=== PATIENT | female | born 1980 | race Caucasian/White ===

== ENCOUNTER 2021-01-28 22:23 | Observation (INO) | payer OTHER, SELFPAY ==
[2021-01-28 22:33] VITALS: BP 125/65; PULSE 81; RESP 16; TEMP 36.7; O2SAT 100
--- NOTE | 2021-01-28 22:58 | W.ED.GENAD ---
Discharge Plan Disposition Patient Disposition: [facility] INPATIENT Condition: Stable Discharge Details Clinical Impression: Abdominal pain, RLQ, First trimester Primary Care Provider: Unknown,Unknown ED Provider: Darrin Coronel Home Meds and New Rx's Prescriptions: No Action No Known Home Meds RF: 0 Medical Decision Making 40-year-old female with no significant medical or surgical history presenting with right-sided abdominal pain in the setting of positive home test. She is tender to palpation in the right lower quadrant over McBurney's point. She does not have guarding or rebound. She does have scant amount of blood in the vagina with a closed os. Mild right adnexal tenderness but less so than in the right lower quadrant. IV established and laboratory studies ordered. IV fluids and IV Tylenol ordered. Laboratory studies significant for white count of 14.3. Hemoglobin is normal. Chemistries and LFTs normal. Beta quant positive and still being diluted. Unable to get radiology interventional physician to come in tonight to do pelvic ultrasound. Case discussed with OB, Dr. Astudillo. Will admit for observation overnight to MedSurg unit with plan for pelvic ultrasound in the morning. If IUP identified consider appendicitis and possible surgical consult. Plan and reason for admission discussed with patient who is in agreement. She is made n.p.o. Covid swab obtained. She is stable at this time in the ED. Lab Data Lab results reviewed: Yes I reviewed the patient's lab results. HPI General Mode of arrival: ambulatory. Date/Time Provider Initiated Documentation: 01/28/21 22:38. Limitations to Documentation: no limitations. Information obtained by: patient and RN notes reviewed. HPI Narrative: Patient presents to the ED with lower abdominal pain and cramping. Patient reports her last normal menstrual cycle was mid November. She took a test a couple weeks ago which she reports is positive. She also reports a previous miscarriage about 4 to 5 months ago. She has had some pain on and off in the lower pelvis. She has had pressure for the last couple of weeks. She has had occasional spotting but no actual bleeding. Today she felt good until this evening when she developed pain and cramping suprapubic and off to the right. She has nausea but no vomiting. She had diarrhea yesterday but not today. Feels like she needs to push and have a bowel movement but cannot and gets sharp pain on the right. She has no urinary symptoms. No fever. She is visiting from [facility]. Related Data Home Medications Medication Instructions Recorded Confirmed Unknown [No Known Home Meds] 01/28/21 01/28/21 Allergies Allergy/AdvReac Type Severity Reaction Status Date / Time Penicillins Allergy Severe Unverified 01/29/21 00:11 General Stated Complaint: Abd Prob ADWOA: 2 Review of Systems Narrative: 12/30 Review of Systems completed and is negative except as stated above in HPI (Systems reviewed: Const, Eyes, ENT, Resp, CV, GI, , MSK, Skin, Neuro) [facility] Medical History No significant past medical history Surgical History No significant past surgical history Social History Smoking/Tobacco Use Status: Never Smoking risk assessment performed?: Yes Alcohol Intake: current Alcohol Intake frequency: holidays/special occasions only Drug use: Never Substance use type: does not use Details: Here visiting from [facility]. 4 weeks Do you feel safe at home: Yes Do you feel safe in your relationship?: Yes Exam Narrative Exam Narrative: Const: WDWN female in NAD. HEENT: NC/AT. Normal facial exam. Eyes: Normal conjunctiva and sclera. Neck: Supple. Trachea midline. Lungs: Normal respiratory effort. Lungs are clear. Cor: RRR without murmur/gallop. Good radial pulses. GI: Soft and ND. Some tenderness RLQ. No guarding or rebound. : Pelvic exam done with female nurse Marlena present. Normal external genitalia. Scant blood in vagina. Cervix NT and os closed. Left adnexa normal. Right adnexa with mild tenderness but no mass. Uterus normal. Back: No CVAT Neuro: A+O x 3. Normal speech, mentation, gait. Cranial nerves II - XII grossly intact. No gross motor or sensory deficit. Ext: No C/C/E. Skin: Warm and dry without rash. Course Vital Signs Vital signs: Vital Signs Temperature 98.1 F 01/28/21 22:33 Pulse 81 01/28/21 22:33 Respiratory Rate 16 01/28/21 22:33 Blood Pressure 125/65 01/28/21 22:33 Pulse Oximetry 100 01/28/21 22:33 Temperature 98.1 F 01/28/21 22:33 Temperature Source Skin 01/28/21 22:33 Pulse 81 01/28/21 22:33 Respiratory Rate 16 01/28/21 22:33 Respiratory Effort Non-Labored 01/28/21 22:51 Blood Pressure 125/65 01/28/21 22:33 Blood Pressure Position Sitting 01/28/21 22:33 Pulse Oximetry 100 01/28/21 22:33 Oxygen Delivery Method Room Air 01/28/21 22:33 Oxygen Flow Rate 0 01/28/21 22:33 Pain Level 5 01/28/21 22:33
[2021-01-28 23:31] LABS: Abs Immature Grans 0.04 10^3/uL (0.0-0.06); Absolute Basophil Count 0.03 10^3/uL (0.0-0.2); Basophils % 0.2; Eosinophils % 0.7; HCT 37.6 % (36.0-46.0); HGB 12.2 g/dL (11.2-15.7); Immature Grans % 0.3; MCH 28.9 pg (27.0-33.0); MCHC 32.4 % (32.0-36.0); MCV 89.1 fL (80-95); MPV 11.1 fL (8.0-11.0); Neutrophils % 79.8; Nucleated RBC 0 %; Platelet Count 250 10^3/uL (130-400); RBC 4.22 10^6/uL (3.93-5.22); RDW 13.1 % (11.7-14.6); RDW-SD 42.8 fL; WBC 14.28 10^3/uL (4.4-10.8)
[2021-01-28 23:34] LABS: Absolute Lymphocyte Count 1.86 10^3/uL (1.2-3.4); Absolute Monocyte Count 0.86 10^3/uL (0.1-0.8)
[2021-01-28 23:48] LABS: Lipase 134 U/L (73-393)
[2021-01-29] VITALS (14 sets, daily range): BP systolic 90–130; BP diastolic 41–70; PULSE 66–81; RESP 12–22; TEMP 36.5–37.6; O2SAT 96–100; BMI 29.0
[2021-01-29] MEDS: ACETAMINOPHEN 1,000 MG/100 ML BTL 400 MG IVPB (00:05)
[2021-01-29 00:18] LABS: Albumin 3.8 g/dL (3.4-5.0); Alkaline Phosphatase 81 U/L (46-116); BUN 12 mg/dL (7-18); Bilirubin, Total 0.4 mg/dL (0.2-1.0); CREATININE 0.8 mg/dL (0.55-1.02); Chloride 105 mmol/L (98-107); Glucose 110 mg/dL (74-106); Potassium 3.8 mmol/L (3.5-5.1); Sodium 142 mmol/L (136-145); Total Protein 6.8 g/dL (6.4-8.2)
[2021-01-29 00:19] LABS: ALT 27 U/L (14-59); AST 17 U/L (15-37); Anion Gap 11.1 mmol/L (3-11); CO2 25.9 mmol/L (21.0-32.0)
--- NOTE | 2021-01-29 00:55 | DI.US_ITS ---
Exam(s) US OB 1ST TRIMESTER EXAM: US OB 1ST TRIMESTER CLINICAL HISTORY: RLQ/adnexal pain with positive quant. TECHNIQUE: Transabdominal and transvaginal pelvic ultrasound was performed using standard protocol. COMPARISON: No exams were available for comparison FINDINGS: KIDNEYS: Kidneys are symmetric in size. No evidence of renal calculi. No evidence of hydronephrosis. No renal mass or cyst identified. UTERUS: Position: Anteverted. Size: 9.0 long by 5.2 AP by 4.5 transverse cm Endometrium: Normal for patient's menstrual status. There is no evidence of an intrauterine gestation . Myometrium: Unremarkable. Cervix: Unremarkable. OVARIES: Right: 2.8 x 2.4 x 1.3 cm Cyst or mass: Small follicular cysts are present. Left: 3.7 x 2.5 x 2.2 cm Cyst or mass: Adjacent to the left ovary note is made of a 3.1 x 2.7 x 2.6 cm ectopic with a gestational sac, pole and heart motion. Based on crown-rump length of 0.8 cm the estim ated gestational age is 6 weeks 6 days. There is complex heterogeneous tissue adjacent to the ectopi c which may reflect blood products. DOPPLER: Color: Symmetric and uniform flow to both ovaries. No hyperemia. Duplex: Normal ovarian arterial waveforms visualized. CUL-DE-SAC: Free fluid: Moderate amount of complex free fluid in the cul-de-sac. Other: There is no free fluid seen in Garay's pouch. IMPRESSION: 1. In the left adnexa adjacent to the left ovary, there is an ectopic with a gestational sa c, pole and cardiac motion. Based on crown-rump length estimated gestational age is 6 weeks 6 days. 2. Normal sonographic appearance of the kidneys. 3. No evidence of an intrauterine gestation. 4. Complex fluid adjacent to the left ovary and in the cul-de-sac which may reflect blood products. DATA REPOSITORY:
[2021-01-29 00:59] LABS: Calcium 8.8 mg/dL (8.5-10.1); HCG Quant, Pregnancy 37868 mIU/mL (1-3)
[2021-01-29 01:07] LABS: Bilirubin Negative (Negative); Blood Large (Negative); Clarity Sl Cloudy (Clear); Glucose Negative (Negative); Ketones Negative (Negative); Leukocyte Esterase Negative (Negative); Nitrite Negative (Negative); Urobilinogen 0.2 EU/dL (Up TO 0.2); pH 5.5 (5-8)
[2021-01-29 01:08] LABS: Bacteria Few HPF (Negative); C & S Indicated? No; Casts Negative LPF (Negative); Crystals Few Amorphous HPF (Negative); Epithelial Cells Moderate HPF (Negative); Mucus Negative (Negative); WBC 0-2 HPF (0-5)
[2021-01-29 01:15] LABS: Source Nasal/Nares
[2021-01-29 02:06] LABS: COVID-19 PCR Negative (Negative)
[2021-01-29] MEDS: Normal Saline 1,000 ML 150 ML IV ×2 (03:45→11:13)
--- NOTE | 2021-01-29 08:55 | INITIAL_ITS ---
- If Service Date Differs Date of service: 01/29/21 Time of Service: 08:56 Care Management Initial Assess REASON FOR HOSPITALIZATION:: Abdominal Pain, PAST MEDICAL HISTORY/PAST SURGICAL HISTORY:: Medical History . No significant past medical history. Surgical History . No significant past surgical history PREVIOUS FUNCTIONAL STATUS/SOCIAL/FAMILY SUPPORTS:: Aviva resides in [place], [place]. with her boyfriend Zacarias Schumacher. She has no children. 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 CURRENT FUNCTIONAL STATUS:: Aviva was in surgery when CM came to meet with her. Her mother was in the room waiting and was able to provide some information. Apparently Aviva had a miscarriage in September of this year and underent a procedure, likely a D&C. Since it is unknown if Aviva has shared the fact that she is with her mother, the reason for surgery was not discussed with her. Her motherr Marija also shared that Aviva was here visiting her boyfriend's mother when she began to have pain, which is how she ended up at [facility]. Aviva she is originally from [facility]. ADVANCE DIRECTIVES:: none on file Has patient been provided with info about the portal/API?: Yes Did the patient sign up for the portal?: No CODE STATUS:: Full Code INSURANCE COVERAGE / FINANCIAL ISSUES:: [employer] - not [facility] CURRENT HOME/COMMUNITY SERVICES/EQUIPMENT:: none PRIMARY CARE PHYSICIAN:: none POTENTIAL DISCHARGE NEEDS:: follow up with CONTRACTS SPECIALIST and plan of care PATIENT/FAMILY EDUCATION NEEDS:: Review of discharge instructions, activity, limitations, follow up plan, Ask Me Three TRANSPORTATION:: via private vehicle [facility] [place] friends/family PLAN:: Aviva will likley be discharged home with no new services. She will follow up with her community providers and plan of care and transport with friends/family. CM will continue to support Aviva and her discharge needs.
--- NOTE | 2021-01-29 10:21 | HPE_ITS ---
Date of service: 01/29/21 Time of Service: 10:22 Assessment and Plan Assessment and plan (1) Abdominal pain, RLQ: Status: Acute Assessment and plan: Patient was admitted to the floor for further evaluat ion with ultrasound when available with a suspicion of acute appendicitis versus ectopic . She has stable hemoglobin of 12.2 with normal vital signs and a mildly elevated white blood cell count. Ultrasound performed today confirmed an ectopic with cardiac activity present and a moderate amount of free fluid. At this point, risk benefits and alternatives of surgical operation with removal of the pack possible salpingectomy, possible salpingo-oophorectomy, possible laparotomy were all explained to the patient in full informed consent was obtained. She understands the risks of infection, bleeding, injury to surrounding organs, risk of anesthesia. She will have preoperative laboratory studies done in addition which would be type and screen. Her Covid testing is negative. She will be taken to the OR for her surgical intervention as soon as possible. (2) First trimester : Status: Acute (3) Ectopic : Status: Acute History of Present Illness History of Present Illness Chief Complaint: Early and abdominal pain Consults Consult date: 01/29/21 Requesting physician: Darrin Coronel Narrative: Patient is a 40-year-old 2 para 0-0-1-0 who is from [place]. She is here in town visiting. She has been having intermittent lower abdominal pain which has worsened over the past 24 hours. She had a positive home test and no obstetric care to this point. She initially was seen and examined emergency department late last night and laboratory studies were done which showed a mildly elevated white count, stable hemoglobin at 12.2 and a positive test with quantitative 8 pending. Her symptoms were that of pelvic pressure and some GI disruption. In light of these signs and her early , she was admitted to the hospital in light of the fact that there was no available instrumentation technologist in the night for imaging this morning. She was initially assessed and found to be clinically and hemodynamically stable. I saw her this morning and findings of a quantitative hCG of 37,000 were discussed along with evaluation for her clinical stability. She was sent to the ultrasound department today and ultrasound confirmed an ectopic with a moderate amount of free fluid and cardiac activity. Uterus is otherwise empty. These findings were discussed with the patient and need for surgical intervention. Risk benefits and alternatives of surgery with operative laparoscopy, possible laparotomy, possible salpingo-oophorectomy were all discussed with the patient at length and full informed consent was obtained for surgical procedure. Prior to her presentation here in the emergency department, she was having some intermittent bowel dysfunction and mild nausea. She denies significant fevers or chills. She had a small amount of vaginal spotting a few weeks ago. She does report that she has had 1 previous which was cared for via [facility] with a suspicion of miscarriage. This was approximately 5 months ago. She had no follow-up for this. Patient denies any previous a bdominal surgeries. She has no history of pelvic inflammatory disease. Otherwise she has a healthy 40-year-old. Covid testing that was done the emergency department was negative Review of Systems All systems reviewed & are unremarkable except as noted in HPI and below Constitutional Constitutional: Reports as per HPI, Denies anorexia, Denies body ache(s), Denies fever(s), Reports malaise, Reports poor appetite and Denies weight gain Eyes Eyes: Reports system reviewed and no additional complaints, except as documented ENT Ears, Nose, Mouth, and Throat: Reports system reviewed and no additional complaints, except as documented Cardiovascular Cardiovascular: Reports system reviewed and no additional complaints, except as documented, Denies chest pain, Denies irregular heart rhythm and Denies lightheadedness Respiratory Respiratory: Reports system reviewed and no additional complaints, except as documented and Denies cough Gastrointestinal Gastrointestinal: Reports as per HPI, Reports bloating, Reports change in bowel habits, Denies diarrhea and Denies vomiting Genitourinary Genitourinary: Reports as per HPI, Denies abnormal vaginal bleeding and Reports amenorrhea Comments: Pelvic pressure Musculoskeletal Musculoskeletal: Reports system reviewed and no additional complaints, except as documented Neurologic Neurologic: Reports system reviewed and no additional complaints, except as documented Endocrine Endocrine: Reports system reviewed and no additional complaints, except as documented [facility] Medical History (Updated 01/29/21 @ 10:30 by Marilou Astudillo DO) Ectopic No significant past medical history Surgical History No significant past surgical history Social History Smoking/Tobacco Use Status: Never Smoking risk assessment performed?: Yes Alcohol Intake: current Alcohol Intake frequency: holidays/special occasions only Drug use: Never Substance use type: does not use Details: Here visiting from [facility]. 4 weeks Do you feel safe at home: Yes Do you feel safe in your relationship?: Yes Meds Allergies and Home Medications Allergies Allergy/AdvReac Type Severity Reaction Status Date / Time Penicillins Allergy Severe Unverified 01/29/21 00:11 Home Medications Medication Instructions Recorded Confirmed Type Unknown [No Known Home Meds] 01/28/21 01/28/21 History Exam Const General: cooperative, healthy appearing, comfortable, no acute distress, well developed and well groomed Nutritional Appearance: average body habitus Orientation: alert and oriented x3 Eyes General: appearance normal, both eyes and all related structures Resp Effort & Inspection: normal respiratory effort Auscultation: clear to auscultation bilaterally Cardio Rate: regular rate Rhythm: regular rhythm Heart Sounds: S1 normal and S2 normal GI Inspection: normal to inspection Palpation: soft, not firm, no guarding and not rigid Skin General skin exam: no rashes or lesions noted Neuro General: patient alert and patient oriented x3 Extrem General: normal to inspection and no clubbing, cyanosis or edema Results Labs Result diagrams: 01/28/21 23:15 01/28/21 23:15 Labs: Laboratory Results - last 24 hr 01/28/21 01/28/21 01/29/21 23:15 23:15 00:20 WBC 14.28 H RBC 4.22 Hgb 12.2 Hct 37.6 MCV 89.1 MCH 28.9 MCHC 32.4 RDW 13.1 Plt Count 250 MPV 11.1 H Immature Gran % 0.3 Neutrophils % 79.8 Lymphocytes % 13.0 Monocytes % 6.0 Eosinophils % 0.7 Basophils % 0.2 Nucleated RBC % 0 Absolute Neutrophils 11.40 H Absolute Lymphocytes 1.86 Absolute Monocytes 0.86 H Absolute Eosinophils 0.10 Absolute Basophils 0.03 Sodium 142 Potassium 3.8 Chloride 105 Carbon Dioxide 25.9 Anion Gap 11.1 H BUN 12 Creatinine 0.8 Estimated GFR/1.73 m2 >= 60.00 Glucose 110 H Calcium 8.8 Total Bilirubin 0.4 AST 17 ALT 27 Alkaline Phosphatase 81 Total Protein 6.8 Albumin 3.8 Lipase 134 Beta HCG, Quant 21587 H Urine Color Yellow Urine Clarity Sl Cloudy Urine pH 5.5 Ur Specific [place] 1.020 Urine Protein Negative Urine Ketones Negative Urine Blood Large H Urine Nitrite Negative Urine Bilirubin Negative Urine Urobilinogen 0.2 Ur Leukocyte Esterase Negative Urine RBC 3-5 H Urine WBC 0-2 Ur Epithelial Cells Moderate Urine Crystals Few Amorphous Urine Bacteria Few Urine Casts Negative Urine Mucus Negative Ur Culture Indicated? No Urine Glucose Negative COVID-19 Source SARS-CoV-2 (PCR) 01/29/21 00:57 WBC RBC Hgb Hct MCV MCH MCHC RDW Plt Count MPV Immature Gran % Neutrophils % Lymphocytes % Monocytes % Eosinophils % Basophils % Nucleated RBC % Absolute Neutrophils Absolute Lymphocytes Absolute Monocytes Absolute Eosinophils Absolute Basophils Sodium Potassium Chloride Carbon Dioxide Anion Gap BUN Creatinine Estimated GFR/1.73 m2 Glucose Calcium Total Bilirubin AST ALT Alkaline Phosphatase Total Protein Albumin Lipase Beta HCG, Quant Urine Color Urine Clarity Urine pH Ur Specific Republic Urine Protein Urine Ketones Urine Blood Urine Nitrite Urine Bilirubin Urine Urobilinogen Ur Leukocyte Esterase Urine RBC Urine WBC Ur Epithelial Cells Urine Crystals Urine Bacteria Urine Casts Urine Mucus Ur Culture Indicated? Urine Glucose COVID-19 Source Nasal/Nares SARS-CoV-2 (PCR) Negative Last Vital Signs Temp 98.8 F 01/29/21 10:18 Pulse 72 01/29/21 10:18 Resp 12 01/29/21 10:18 BP 108/68 01/29/21 10:18 Pulse Ox 96 01/29/21 10:18
--- NOTE | 2021-01-29 10:31 | DI.VRAD_ITS ---
PROCEDURE INFORMATION: Exam: US First Trimester, Transabdominal and US , Transvaginal Exam date and time: 01/29/2021 9:13 AM Age: 40 years old Clinical indication: Other: Rlq pain; Gestational age or lmp: Lmp 12/06/20? ; TECHNIQUE: Imaging protocol: Real-time transabdominal obstetrical ultrasound of the maternal pelvis and a first trimester , less than 14 weeks 0 days, with image documentation. Transvaginal imaging was used for better evaluation of the fetus, adnexa, and/or cervix. COMPARISON: No relevant prior studies available. FINDINGS: Gestation: No intrauterine gestation identified. See left adnexa MATERNAL: Uterus: No intrauterine gestation. Cervix: Unremarkable. Right adnexa: Unremarkable right ovary. Left adnexa: In the left adnexa adjacent to the left ovary is a 3.1 x 2.7 x 2.6 cm ectopic with a gestational sac, pole, and heart motion. [place]-rump length 0.85 cm, corresponding to a gestational age 6 weeks 6 days. Surrounded complex heterogeneous tissue density may be related to blood products. Intraperitoneal space: Moderate amount of complex free fluid in the cul-de-sac. IMPRESSION: 1. In the left adnexa adjacent to the left ovary is a 3.1 x 2.7 x 2.6 cm ectopic with a gestational sac, pole, and cardiac motion. 2. Complex surrounding heterogeneous tissue may be related to blood products. 3. Moderate amount of complex free fluid in the cul-de-sac. COMMENTS: THIS REPORT CONTAINS FINDINGS THAT MAY BE CRITICAL TO PATIENT CARE. The findings were verbally communicated via telephone conference with Dr. Astudillo at 10:30 AM EST on 01/29/2021. The findings were acknowledged and understood. Dictated and Authenticated by: Ruben Shah MD. Ordering:DUYEN Clifford MD
--- NOTE | 2021-01-29 11:03 | W.ANESPRE ---
General Info Date of Service Date Performed: 01/29/21 Height: 5 ft 7 in Weight: 84.2 kg Body Mass Index (BMI): 29.0 Surgical Procedure: Operation Date: 01/29/21 11:00 Proposed Procedures Side Surgeon p Diagnostic Laparoscopy Marilou Astudillo DO Meds Allergies and Home Medications Allergies Allergy/AdvReac Type Severity Reaction Status Date / Time Penicillins Allergy Severe Unverified 01/29/21 00:11 Home Medication Medication Instructions Recorded Unknown [No Known Home Meds] 01/28/21 Current Visit Medications: Current Medications Generic Name Dose Route Start Last Admin Trade Name Freq PRN Reason Stop Dose Admin Sodium Chloride 500 mls @ 0 mls/hr 01/28/21 23:09 Saline 500ml Bag IV PRN PRN As Directed Sodium Chloride 1,000 mls @ 150 mls/hr 01/29/21 01:00 01/29/21 09:45 Saline 1000ml Bag IV 150 mls/hr INFUSION MIKE Infusion IV Miscellaneous Supplies 1 each 01/28/21 23:15 Iv Access IV DIRECTED MIKE Sodium Chloride 0 ml 01/28/21 23:09 Normal Saline Flush 10 Ml Syr IVP PRN PRN PFSH Active Problems Active Problems: Problem Status Onset Code Ectopic O00.90 Abdominal pain, RLQ R10.31 First trimester Z34.91 Medical History Medical History (Updated 01/29/21 @ 10:30 by Marilou Astudillo DO) Ectopic No significant past medical history Surgical History Surgical History No significant past surgical history Tobacco Smoking/Tobacco Use Status: Never Alcohol Alcohol Intake: current Alcohol intake frequency: holidays/special occasions only Substance Use Substance use: Never Substance use type: does not use Details: Here visiting from [facility]. 4 weeks Vital Signs and Lab Results Vital Signs Most Recent Vital Signs in EMR: Most Recent Vital Signs Temp Pulse Resp BP Pulse Ox 37.1 C 72 12 108/68 96 01/29/21 10:18 01/29/21 10:18 01/29/21 10:18 01/29/21 10:18 01/29/21 10:18 Lab Results Result Diagrams: 01/28/21 23:15 01/28/21 23:15 Blood Type / Crossmatch: Patient ABO/Rh B Positive 01/29/21 10:25 01/29/21 Antibody Screen NEGATIVE 01/29/21 10:25 01/29/21 Complete Blood Count: White Blood Count 14.28 10^3/uL (4.4-10.8) H 01/28/21 23:15 01/28/21 Red Blood Count 4.22 10^6/uL (3.93-5.22) 01/28/21 23:15 01/28/21 Hemoglobin 12.2 g/dL (11.2-15.7) 01/28/21 23:15 01/28/21 Hematocrit 37.6 % (36.0-46.0) 01/28/21 23:15 01/28/21 Platelet Count 250 10^3/uL (130-400) 01/28/21 23:15 01/28/21 Complete Metabolic Panel: Sodium Level 142 mmol/L (136-145) 01/28/21 23:15 01/28/21 Potassium Level 3.8 mmol/L (3.5-5.1) 01/28/21 23:15 01/28/21 Chloride Level 105 mmol/L (98-107) 01/28/21 23:15 01/28/21 Carbon Dioxide Level 25.9 mmol/L (21.0-32.0) 01/28/21 23:15 01/28/21 Blood Urea Nitrogen 12 mg/dL (7-18) 01/28/21 23:15 01/28/21 Creatinine 0.8 mg/dL (0.55-1.02) 01/28/21 23:15 01/28/21 Estimated GFR/1.73 m2 >= 60.00 (mL/min/1.73m2) 01/28/21 23:15 01/28/21 Calcium Level 8.8 mg/dL (8.5-10.1) 01/28/21 23:15 01/28/21 Albumin 3.8 g/dL (3.4-5.0) 01/28/21 23:15 01/28/21 Glucose Level 110 mg/dL (74-106) H 01/28/21 23:15 01/28/21 Liver Function Panel: Alanine Aminotransferase (ALT/SGPT) 27 U/L (14-59) 01/28/21 23:15 01/28/21 Aspartate Amino Transf (AST/SGOT) 17 U/L (15-37) 01/28/21 23:15 01/28/21 Coagulation Panel: No Data to Display Cardiac Panel: No Data to Display Arterial Blood Gas: No Data to Display Venous Blood Gas: No Data to Display Pancreas Panel: Lipase 134 U/L (73-393) 01/28/21 23:15 01/28/21 Thyroid Panel: No Data to Display Infectious Disease: Coronavirus (COVID-19)(PCR) Negative (Negative) 01/29/21 00:57 01/29/21 Coronavirus 2019 Source Nasal/Nares 01/29/21 00:57 01/29/21 Neisseria gonorrhoeae DNA Probe Pending 01/28/21 23:50 01/28/21 Blood Cultures: No Data to Display Toxicology Panel: No Data to Display Panel: Beta HCG, Quantitative 51845 mIU/mL (1-3) H 01/28/21 23:15 01/28/21 Anesthesia Assessment and Plan Anesthesia History Personal History: No History of General Anesthesia Family History: No Family History of Anesthesia Complications Exercise Tolerance Exercise Tolerance: Metabolic Equivalents>4 Pertinent Negatives Pertinent Negatives: No Symptoms of GERD and No Major Cardiovascular Symptoms or Complaints Cardiac & Pulmonary Exam Cardiac Exam: Normal S1/S2 Heart Sounds Pulmonary Exam: Clear Bilateral Breath Sounds Cardiac and Pulmonary Comment:: Exercise induced asthma, rare inhaler use Implantable Cardiac Device Does patient have a Pacemaker or an ICD?: No Airway Exam Known Difficult Airway: No Mallampati Class: 3 Mouth Opening: Narrow (< 3cm) Thyromental Distance: Greater than 3 cm Neck Range of Motion: Full ROM Neck Circumference: Normal Teeth Condition: Normal Dentition ASA Classification ASA Score: ASA 2 Emergency Case?: Yes NPO Status NPO Status: NPO Clears >2 hours, Solids >8 hours Status Status: Other (Ectopic confirmed by CT) Anesthesia Plan Resuscitation Status: Full Code Anesthesia Technique: General Anesthesia Airway Planned: Endotracheal Tube Monitors Used: Standard Monitors
[2021-01-29] MEDS: Bupivacaine 0.25% Pres-Free 30 ML VIAL (12:28)
--- NOTE | 2021-01-29 12:59 | FALL_PTH ---
PATIENT: Stephanie Cueto LOC: [id number] AGE/SX: 40/F ROOM: 226 RE01/29/[address]: Marilou Astudillo DO : 1980 BED: A DIS: 01/29/2021 SPEC #: [id number] RECD: 01/31/21 12:55 STATUS: SOUChris REQ #: [id number] ELENA: 01/29/21 12:[address]: Marilou Astudillo DEPT: Surgical Specimen RECD BY: Chitra Nunez ENTERED: 01/31/21 12:57 SP TYPE: Fall OTHR DR: None Tissues: 1 - FALLOPIAN TUBE (ECTOPIC) Procedures: GROSS AND MICRO LEVEL 4 Comments: [id number]
--- NOTE | 2021-01-29 14:18 | W.PM.OP ---
Date of service: 01/29/21 Time of Service: 14:19 Operative Note Operative Note DATE OF PROCEDURE: 01/29/21 PRE-OP DIAGNOSIS: Ectopic POST-OP DIAGNOSIS: same Left ectopic , pelvic adhesions PROCEDURE: Operative laparoscopy with left salpingectomy, lysis of adhesions SURGEON: Marilou Astudillo MOBILE EQUIPMENT SERVICER: Rajwinder Garcia ANESTHESIA TYPE: Local By Surgeon and General LMA/ETT Refer to Anesthesia Record ESTIMATED BLOOD LOSS: 300 PATHOLOGY: other (Left fallopian tube with ectopic) COMPLICATIONS: None Patient was transported to: PACU Patient's condition: stable Indications: Extrauterine , suspect ectopic, cardiac activity present, moderate free fluid in the abdomen Findings: Ruptured left ectopic with adhesions. Normal-appearing right fallopian tube, normal-appearing ovaries bilaterally. Adhesions of the cecum and omentum to the intra-abdominal wall Procedure Description: Patient was taken the operating suite with an IV running after full informed consent was obtained. She was placed in dorsal supine position and endotracheal intubation performed for the administration of general anesthesia with ease. She was then placed in the modified dorsolithotomy position in [facility] stirrups and prepped and draped in the usual sterile fashion. Examiner is seizure revealed a uterus that was midline and mobile and anteverted. Truner catheter was placed for continuous bladder drainage. Speculum was inserted into the vaginal vault and a single-tooth tenaculum used to grasp the anterior lip of the cervix. Hulka uterine manipulator was placed within for uterine elevation. At this point Ocu-Lone was removed and attention turned to the abdomen. After infiltration of half percent Marcaine, and infraumbilical incision was made. The anterior haider wall was elevated and varies needle used to directly inserted into the abdomen. With CO2 gas to a maximum pressure of 15 mmHg a pneumoperitoneum was created. With a 12 mm Optiview bladeless sleeve and trocar under direct visualization camera was inserted into the abdomen. Upon insertion there was noted to be a moderate amount of free blood within the abdomen. Uterus was elevated. Right fallopian tube appeared normal. Left fallopian tube appeared dilated and adherent to the left pelvic sidewall. There is noted to be a very small adhesion of the omentum to the left side of the anterior abdominal wall. There are also noted to be adhesions near to the cecum. At this point, after infiltration of Marcaine a second and third right and left lower trocar site were placed under direct visualization. The uterus was elevated, left fallopian tube elevated and with gentle blunt dissection disconnected from the left ovary. With a LigaSure device, the left fallopian tube was cautery transected and ligated for removal. Camera was converted with 5 mm an Endopouch placed through the umbilical incision. The left adnexa was removed from the abdomen without difficulty. At this point inspection of the left fallopian tube pedicle and structures near to the ovary was undertaken. Fibrinous debris was meticulously dissected away from the ovarian fossa. Pedicle site was found to hemostatic. After copious irrigation of the anterior cul-de-sac, posterior cul-de-sac and remainder of the abdomen, the bulk of the hemoperitoneum was relieved. Due to the inflammatory changes around the appendiceal region, general surgeon was called to evaluate this area. Please see operative note from consulting general surgeon. At this point, again all pedicles were inspected and found to be hemostatic. The patient was returned to the dorsal supine position. Pneumoperitoneum released. Pedicle again hemostatic at low pressure. And at this point all instrumentation was removed. The infraumbilical fascial incision was closed using 0 Vicryl suture in a simple interrupted fashion. Skin edges reapproximated with 4-0 Monocryl suture and skin affix placed. The Hulka uterine manipulator and Turner catheter were removed and the patient was returned to the dorsal supine position and awoke from anesthesia with ease. EBL: 300 mL Complications: None apparent Pathology: Left fallopian tube with ectopic for examination. Fluids: Crystalloid per anesthesia.
[2021-01-29] MEDS: fentaNYL 100 MCG/2 ML VIAL IVP ×2 (14:56→15:08)
[2021-01-29] MEDS: HYDROcodone 5/Acetaminophen 325 TAB PO (15:44)
--- NOTE | 2021-01-29 16:19 | ROE_ITS ---
Date of service: 01/29/21 Time of Service: 13:30 Operative Note Operative Note DATE OF PROCEDURE: 01/29/21 PRE-OP DIAGNOSIS: ectopic , possible appendicitis POST-OP DIAGNOSIS: same ectopic PROCEDURE: exploratory laparoscopy with lysis of adhesions SURGEON: Yady Trevizo ASSISTING SURGEON: Marilou Astudillo POWERHOUSE OILER: Rajwinder Garcia ANESTHESIA TYPE: Local By Surgeon and General LMA/ETT Refer to Anesthesia Record ESTIMATED BLOOD LOSS: 10 PATHOLOGY: other (Left fallopian tube with ectopic) COMPLICATIONS: None Patient was transported to: PACU Patient's condition: stable Indications: Called for intraoperative consultation due to concern for possible appendicitis Findings: Adhesions were present within the right lower quadrant to to the anterior abdominal wall increasing concerns for underlying appendicitis by Dr. Astudillo the operating [employer] Tender. After takedown of these adhesions I still was not able to easily visualize the appendix which I suspect is retrocecal and would require further surgical dissection increasing the risk of inadvertent injury to surrounding structures, therefore my efforts to find the appendix were aborted as there was no apparent evidence of acute inflammatory process or peritonitis present within the right lower quadrant. Procedure Description: This was an intraoperative consultation therefore no prior surgical consent had been obtained. The patient was found to have evidence of hemoperitoneum had undergone left salpingectomy for treatment of ruptured ectopic prior to my arrival. Please refer to [employer] operative report for further details. Adhesions were present in the right lower quadrant which were taken down with a combination of blunt and sharp dissection. The omental attachments were taken down with the assistance of the laparoscopic Ligasure device. The remaining adhesions were taken down sharply using laparoscopic vernon. Dissection was taken to the most lateral aspect of the peritoneum witho ut any evidence of inflammatory process. The small and large bowel appeared normal without any evidence of enteritis or colitis. Certainly no purulent or fibrinous material were encountered during my inspection. After patient repositioning and adhesiolysis I was not able to visualize the patient's appendix without further dissection. Due to the risk of inadvertent injury to surrounding structures that would be involved with further dissection, the decision was made to abort my portion of the procedure. There was no evidence of acute inflammatory process present. Because I was not able to adequately visualize the appendix I would recommend treatment with continued antibiotics as a prophylaxis against the possibility of coinciding appendicitis. A follow up CT scan of the abdomen and pelvis with IV contrast may be considered should the patient have continued clinical concern for the presence of appendicitis. Please refer to operative report by Dr. Astudillo for further details as my involvement in the case was transient.
--- NOTE | 2021-01-29 16:19 | SCONE_ITS ---
Date of service: 01/29/21 Time of Service: 16:19 Assessment and Plan Assessment and plan (1) Abdominal pain, RLQ: Status: Acute Assessment and plan: -No evidence of inflammatory process present in the r ight lower quadrant -Low suspicion for acute appendicitis, consider further diagnostic imaging and a ntibiotics if concern persists -Please call for any further questions or concerns (2) Ectopic : Status: Acute Qualifiers: Location of ectopic : tubal Intrauterine status: without intrauterine Laterality: left Qualified Code(s): O00.102 - Left tubal without intrauterine History of Present Illness Narrative: 40 year old female with recent miscarriage and now with left sided ectopic . I was consulted intra-operatively and therefore obtaining history was done via electronic medical records. Initially she complained of right lower quadrant discomfort but after suspicion grew for possible ectopic in the setting of +beta hcg and limited availability of ultrasound imaging in the emergency room she was admitted to the obstetric service. Once in the operating room after salpingectomy I was asked to assist in care due to the previous concern for possible appendicitis in the setting of some anterior abdominal wall adhesions in the right lower quadrant. Consults Consult date: 01/29/21 Requesting physician: Marilou Astudillo Review of Systems Unobtainable due to endotracheal tube and Unobtainable due to (intra-operative consult) [facility] Medical History (Updated 01/30/21 @ 19:52 by Yady Trevizo DO) Ectopic No significant past medical history Surgical History (Updated 01/29/21 @ 14:28 by Marilou Astudillo DO) No significant past surgical history Status post laparoscopy Left salpingectomy for ectopic Social History Smoking/Tobacco Use Status: Never Smoking risk assessment performed?: Yes Alcohol Intake: current Alcohol Intake frequency: holidays/special occasions only Drug use: Never Substance use type: does not use Details: Here visiting from [facility]. 4 weeks Do you feel safe at home: Yes Do you feel safe in your relationship?: Yes Exam Narrative Exam Narrative: intraoperative consult, unable to examine patient prior to anesthesia Results Last Vital Signs Temp 97.7 F 01/29/21 16:00 Pulse 73 01/29/21 16:00 Resp 20 01/29/21 16:00 BP 95/59 L 01/29/21 16:00 Pulse Ox 100 11/13/21 16:00 Labs Result diagrams: 01/28/21 23:15 01/28/21 23:15 Labs: Laboratory Results - last 24 hr 01/28/21 01/28/21 01/29/21 23:15 23:15 00:20 WBC 14.28 H RBC 4.22 Hgb 12.2 Hct 37.6 MCV 89.1 MCH 28.9 MCHC 32.4 RDW 13.1 Plt Count 250 MPV 11.1 H Immature Gran % 0.3 Neutrophils % 79.8 Lymphocytes % 13.0 Monocytes % 6.0 Eosinophils % 0.7 Basophils % 0.2 Nucleated RBC % 0 Absolute Neutrophils 11.40 H Absolute Lymphocytes 1.86 Absolute Monocytes 0.86 H Absolute Eosinophils 0.10 Absolute Basophils 0.03 Sodium 142 Potassium 3.8 Chloride 105 Carbon Dioxide 25.9 Anion Gap 11.1 H BUN 12 Creatinine 0.8 Estimated GFR/1.73 m2 >= 60.00 Glucose 110 H Calcium 8.8 Total Bilirubin 0.4 AST 17 ALT 27 Alkaline Phosphatase 81 Total Protein 6.8 Albumin 3.8 Lipase 134 Beta HCG, Quant 76509 H Urine Color Yellow Urine Clarity Sl Cloudy Urine pH 5.5 Ur Specific [place] 1.020 Urine Protein Negative Urine Ketones Negative Urine Blood Large H Urine Nitrite Negative Urine Bilirubin Negative Urine Urobilinogen 0.2 Ur Leukocyte Esterase Negative Urine RBC 3-5 H Urine WBC 0-2 Ur Epithelial Cells Moderate Urine Crystals Few Amorphous Urine Bacteria Few Urine Casts Negative Urine Mucus Negative Ur Culture Indicated? No Urine Glucose Negative COVID-19 Source SARS-CoV-2 (PCR) Patient ABO/Rh Antibody Screen 01/29/21 01/29/21 00:57 10:25 WBC RBC Hgb Hct MCV MCH MCHC RDW Plt Count MPV Immature Gran % Neutrophils % Lymphocytes % Monocytes % Eosinophils % Basophils % Nucleated RBC % Absolute Neutrophils Absolute Lymphocytes Absolute Monocytes Absolute Eosinophils Absolute Basophils Sodium Potassium Chloride Carbon Dioxide Anion Gap BUN Creatinine Estimated GFR/1.73 m2 Glucose Calcium Total Bilirubin AST ALT Alkaline Phosphatase Total Protein Albumin Lipase Beta HCG, Quant Urine Color Urine Clarity Urine pH Ur Specific [place] Urine Protein Urine Ketones Urine Blood Urine Nitrite Urine Bilirubin Urine Urobilinogen Ur Leukocyte Esterase Urine RBC Urine WBC Ur Epithelial Cells Urine Crystals Urine Bacteria Urine Casts Urine Mucus Ur Culture Indicated? Urine Glucose COVID-19 Source Nasal/Nares SARS-CoV-2 (PCR) Negative Patient ABO/Rh B Positive Antibody Screen NEGATIVE
[2021-01-31 14:26] LABS: Chlamydia Result Negative (Negative); GC Result Negative (Negative)
== END 2021-01-29 19:00 | disposition home or self-care (01) ==
LOC: ER 01-29 01:14 → MS 01-29 01:30
PROVIDERS: Admitting Provider Obstetrics & Gynecology; Emergency Provider Emergency Medicine; Visit Provider Obstetrics & Gynecology
PROC: (CPT 49320; principal; 2021-01-29 11:00)
DX: O00.102 Left tubal pregnancy without intrauterine pregnancy (principal); Z20.822 Contact with and (suspected) exposure to COVID-19
CPT/HCPCS: 59151; 36415; 80053; 83690; 86850; 86900; 86901; 87491; 87591; 87635; 88305; 96365; 99285; 76801; 81003; 81015; 84702; 85025; 87480; 87510; 87660; 99284; G0378; J0131; J1100; J1885; J2250; J2405; J2704; J3010